=== PATIENT | female | born 2005 | race Caucasian/White ===

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

== ENCOUNTER 2025-02-27 01:01 | Emergency (ER) | payer BC, SELFPAY ==
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
--- OUTSIDE RECORDS SUMMARY | 2025-02-27 01:03 | XMS_ITS | Clinical Summary ---
Author Organization [facility] Address [address] [place] [address] Care Team Providers Care Cookie Padder Name Role Phone Jaclyn Whitten MD Primary Care Provider [phone] Allergies No known active allergies Medications No known medications Immunizations Immunization Administration Dates Next Due COVID-19 MONOVALENT 12+ (Pfizer) 12/22/2020,11/18 DTAP (<7y) 04/29/2007 DTAP-IPV, <7Y (QUADRACEL/KINRIX) 02/15/2011 DTaP/HepB/IPV 07/29/2006,04/29/2006,02/25/2006 HIB(PRP-OMP)(PedvaxHIB) 12/29/2006,04/29/2006 HPV 04/06/2018,04/04/2017 Hepatitis A (Vaqta/Havrix)(P eds 12m-18y) 01/13/2012,02/15/2011 Historic Hib Hib-titer 04/29/2007,02/25/2006 Influenza Intranasal Vaccine 05/21/2013,04/16/20 11 Influenza Vaccine >6 months,quad, PF 04/2021,05/11/2020,06/04/2019,04/06,04/04/2017 Influenza vaccine ages 6-35 months 05/23/2016 MMR (MMRII) 02/15/2011 MMR/V (Proquad) 04/29/2007 Meningococcal ACWY (Menveo ) 04/04/2017 Nasal Influenza Vaccine 2-49 (FluMist) 3,04/16/2011,05/15/2010 Pneumococcal (PCV 7) 12/29/2006,07/29/19 07,04/29/2006,02/25 TDAP Vaccine (Boostrix) 04/04/2017 Varicella (Varivax) 02/15/2011 Social History Tobacco Use Types Packs/Day Years Used Date Smoking Tobacco: Never Smokeless Tobacco: Never PHQ-2 Answer Date Recorded PHQ-2 Total Score (12-17 Yea rs)- Positive if 3 or more points; Administer PHQ-A if positive 1 05/30/2021 Adolescent Education Answer Date Record ed Getting School Help Needed Not on file 04/12 Comments No Sex and Gender Information Value Date Recorded Sex Assigned at Not on file Legal Sex Female 2:03 PM CDT Gender Identity Not on file Sexual Orientation Not on file Last Filed Vital Signs Vital Sign Reading Time Taken Comments Blood Pressure 110/65 05/30/2021 8:21 AM DEICER INSPECTOR PNEUMATIC Pulse 84 05/30/2021 8:21 AM DEICER INSPECTOR PNEUMATIC Temperature - - Respiratory Rate - - Oxygen Saturation - - Inhaled Oxygen Concentration - - Weight 56.2 kg (123 lb 14.4 oz) 05/30/2021 8:21 AM DEICER INSPECTOR PNEUMATIC Height 171.8 cm (5' 7.64) 05/30/2021 8:21 AM CS T Head Circumference 57 cm 05/30/2021 8:21 AM DEICER INSPECTOR PNEUMATIC Body Mass Index 19.04 05/30/2021 8:21 AM DEICER INSPECTOR PNEUMATIC Body Mass Index Percentile 34.59% 05/30/2021 8:2 1 AM DEICER INSPECTOR PNEUMATIC Growth Chart: CDC (Girls, 2- 20 Years) Plan of Treatment Health Maintenance Due Date Last Done Comments ADVANCE CARE PLANNING 2005 ANNUAL REVIEW OF HM ORDERS 2005 CHLAMYDIA SCREENING 2005 YEARLY PREVENTIVE VISIT 05/11/2021 05/11/2020 MENINGITIS B VACCINE (1 of 2 - Standard) 2021 COVID-19 VACCINE (3 - season) 2024 12/22/2020, 12/01/2020 PHQ-2 (once per calendar year) 2024 INFLUENZA VACCINE (#1) 2025 , 05/11/2020, 06/04/2019, Additional history exists DTAP/TDAP/TD VACCINE (7 - Td or Tdap) 04/04/2027 04/04/2017, 02/15/2011, 04/29/2007, Additional history exists ZOSTER VACCINE (1 of 2) 12/27/2055 HEPATITIS B VACCINE Completed 07/29/2006, 04/29/2006, 02/25/2006 PNEUMOCOCCAL VACCINE: PEDIATRICS (0 to 5 YEARS) AND AT-RISK PATIENTS (6 to 49 YEARS) Aged Out 12/29/2006, 07/29/2006, 04/29/2006, Additional history exists No longer eligible based on patient's age to complete this topic HIB VACCINE Completed 04/29/2007, 12/19, 04/29/2006, Additional history exists IPV VACCINE Completed 02/15/2011, 03/2007, 04/29/2006, Additional history exists VARICELLA VACCINE Completed 02/15/2011, 04/29/2007 MENINGITIS VACCINE Aged Out 04/04/2017 No longer eligible based on patient's age to complete this topic HPV VACCINE Completed 04/06/2018, 04/04/2017 HEPATITIS C SCREENING Completed 05/30/2021 HIV SCREENING Completed 05/30/2021 Procedures Procedure Name Priority Date/Time Associated Diagnosis Comments HIV ANTIGEN ANTIBODY COMBO Routine 05/30/2021 11:20 AM DEICER INSPECTOR PNEUMATIC Behavior causing concern in adopted child 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 Developmental delay in child HEPATITIS C ANTIBODY Routine 05/30/2021 11:20 AM DEICER INSPECTOR PNEUMATIC Behavior causing concern in adopted child 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 Developmental delay 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 from Last 3 Months or Most Recently Relevant to Health Maintenance Results * HIV Antigen Antibody Combo (05/30/2021 11:20 AM DEICER INSPECTOR PNEUMATIC) HIV Antigen Antibody Combo Nonreactive Nonreactive 05/30/2021 5:15 PM DEICER INSPECTOR PNEUMATIC [facility] Comment:HIV-1 p24 Ag & HIV-1 /HIV-2 Ab Not Detected Blood STRUCTURE OF RIGHT UPPER LIMB / Unknown Venipuncture / Unknown 05/30/2021 11:20 AM DEICER INSPECTOR PNEUMATIC 05/30/2021 11:41 AM DEICER INSPECTOR PNEUMATIC us Leslie Robertson MD LAB - BLOOD ORDERABLE S Final Result [facility] [address] [facility], [address] [place] [address], [facility] [phone] * Hepatitis C antibody (05/30/2021 11:20 AM DEICER INSPECTOR PNEUMATIC) Hepatitis C Antibody Nonreactive Nonreactive 05/30/2021 5:15 PM DEICER INSPECTOR PNEUMATIC [facility] Blood STRUCTURE OF RIGHT UPPER LIMB / Unknown Venipuncture / Unknown 05/30/2021 11:20 AM DEICER INSPECTOR PNEUMATIC 05/30/2021 11:41 AM DEICER INSPECTOR PNEUMATIC Narrative [facility] - 05/30/2021 5:15 PM DEICER INSPECTOR PNEUMATIC Assay performance characteristics have not been established for newborns, infants, and children. Leslie Robertson MD LAB - BLOOD ORDERABLE S Final Result [facility] [address] [facility], [address] [place] [address], [facility] [phone] from Last 3 Months or Most Recently Relevant to Health Maintenance Insurance [facility] [place] [address] [facility] OUT OF STATE BCBS OUT OF STATE Care Teams Cookie Padder Relationship Specialty Start Date End Date Jaclyn Whitten MD [address] [place] [address] PCP - General Pediatrics 05/30/21
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
[2025-02-27 03:10] VITALS: BP 118/72; PULSE 76; RESP 18; TEMP 36.8; O2SAT 98; BMI 17.7
[2025-02-27 03:22] VITALS: BP 109/68; PULSE 60; RESP 18; O2SAT 100
[2025-02-27] MEDS: ONDANSETRON 2 MG/ML inj 4 MG IVP (03:41)
[2025-02-27 04:02] LABS: Hematocrit 40.3 % (33.0-51.0); Hemoglobin* 13.2 gm/dL (12.0-16.0); Lymphocytes Absolute Auto 1.80 K/uL (0.90-2.90); Mean Corpuscular HGB Conc 33 gm/dL (32-36); Mean Corpuscular Hemoglobin 29 pg (26-34); Mean Corpuscular Volume 88 fL (80-100); Red Blood Count 4.58 m/uL (4.00-5.20); White Blood Count* 11.08 K/uL (4.50-11.00)
[2025-02-27 04:03] LABS: Slide Review Reflex No
[2025-02-27 04:04] LABS: Appearance Urine Clear (Clear)
[2025-02-27 04:06] LABS: Alanine Aminotransferase* 11 U/L (4-35); Albumin* 4.8 g/dL (3.3-5.0); Alkaline Phosphatase* 49 U/L (40-150); Anion Gap 8 mEq/L (7-15); Aspartate Amino Transferase* 25 U/L (12-35); Bilirubin Total* 0.3 mg/dL (0.1-1.5); Blood Urea Nitrogen* 10 mg/dL (5-24); Calcium* 9.4 mg/dL (8.7-10.8); Carbon Dioxide* 24 mmol/L (20-32); Chloride* 108 mmol/L (96-114); Creatinine* 0.7 mg/dL (0.6-1.2); Est. Creatinine Clearance* 111.08; Estimated Glomerular Filt Rate 128 ml/min; Glucose* 122 mg/dL (60-115); Potassium* 3.8 mmol/L (3.6-5.1); Sodium* 140 mmol/L (135-149); Total Protein* 7.7 g/dL (6.0-8.3)
[2025-02-27 04:09] LABS: Ur HCG Qualitative* Negative (Negative)
== END 2025-02-27 03:43 | disposition home or self-care (01) ==
LOC: ED 03:21
PROVIDERS: Emergency Provider Emergency Medicine; PCP Pediatrics
DX: R10.9 Unspecified abdominal pain (principal); R11.2 Nausea with vomiting, unspecified
CPT/HCPCS: 36415; 76705; 80053; 81001; 81025; 85025; 96374; 99284; 99285; J2405